=== PATIENT | male | born 1965 | race Caucasian/White ===

== ENCOUNTER 2019-04-21 14:05 | Emergency (ER) | payer SELFPAY ==
[~2019-04-21] VITALS: Ht 175.3 cm; Wt 86.2 kg
[2019-04-21] MEDS ORDERED: KEPPRA1000 MG PO (14:13)
--- NOTE | 2019-04-22 15:36 | EKG ---
[facility] [address] [facility] [place] [id number] Signed Normal sinus rhythm Normal ECG No previous ECGs available Confirmed by IFEOMA ROBLEDO MD ([id number] on 04/22/2019 3:36:44 PM Electronically Signed By: IFEOMA ROBLEDO MD 04/22/19 1536 PATIENT NAME: CANDIS LEONARD RENA Electrocardiogram DATE OF : 65 PHYSICIAN: IFEOMA ROBLEDO MD REPORT #: [id number] REPORT IS CONFIDENTIAL AND NOT TO BE RELEASED WITHOUT AUTHORIZATION
== END 2019-04-21 17:55 | disposition home or self-care (01) ==
LOC: ED 14:05
DX: R55 Syncope and collapse (principal); Z85.841 Personal history of malignant neoplasm of brain
CPT/HCPCS: 70450; 80053; 83735; 84484; 85025; 85379; 93005; 93010; 99284-25